=== PATIENT | female | born 1950 | race Two or more races ===

== ENCOUNTER 2025-02-04 00:38 | Emergency (ER) | payer OTHER ==
[~2025-02-04] VITALS: Ht 149.9 cm; Wt 62.7 kg
[2025-02-04 00:45] VITALS: BP 157/70; RESP 18; TEMP 98.5; O2SAT 93
--- NOTE | 2025-02-04 01:25 | ECG ---
[facility] Test Date: 2025-02-04 Test Time: 01:01:28 Pat Name: GINNY HAM Department: ED Room: Gender: F Sample Wrapper: HAILEY : 1950 Requested By: FRANCO WELLINGTON Order Number: [id number] Reading MD: Efra Talavera Measurements Intervals [place] Rate: 98 P: 51 WV: 163 QRS: 23 QRSD: 83 T: 65 QT: 366 QTc: 468 Interpretive Statements Sinus rhythm Probable left atrial enlargement ST elevation, consider inferior injury Electronically Signed On 02-06-2025 13:00:39 PDT by Efra Talavera Please click the below link to view image of tracing.
--- NOTE | 2025-02-04 01:27 | DVH ---
EXAM: CT HEAD WITHOUT CONTRAST INDICATION: hallucinations TECHNIQUE: CT of the head without intravenous contrast. Radiation Dose : 1. Head: CT Dose: CTDI volume is 52 mGy. Dose-length product is 827 mGy*cm The dose indicators for CT are the volume Computed Tomography (CT) Dose Index (CTDIvol) and the Dose Length Product (DLP), and are measured in units of mGy and mGy-cm, respectively. These indicators are not patient dose, but values generated from the CT scanner acquisition factors. The report includes radiation exposure data for exposures received during this examination. COMPARISON: None FINDINGS: There is no evidence of acute intracranial hemorrhage, extra-axial collection, mass effect, midline s hift, herniation or hydrocephalus. The ventricles, sulci and cisterns are age appropriate. The florence-white differentiation is intact. Patchy periventricular and subcortical white matter hypoattenuation is nonspecific but may be related to small vessel ischemic disease. The visualized paranasal sinuses and mastoid air cells are clear. The surrounding soft tissues and osseous structures are unremarkable. IMPRESSION: 1. No acute intracranial abnormality. Radiation optimization: All CT scans at this facility use at least one of these dose optimization brigid hniques: automated exposure control mA and/or kV adjustment per patient size (includes targeted exam s where dose is matched to clinical indication) or iterative reconstruction.
--- NOTE | 2025-02-04 01:28 | DVH ---
CHEST RADIOGRAPH Indication: halucinations Technique: Single frontal view of the chest was obtained COMPARISON: None FINDINGS: Lines and Tubes: None Lungs: Questionable mild interstitial pulmonary edema Pleura: No effusion. No pneumothorax. Cardiomediastinal contours: Borderline cardiomegaly Bones: Unremarkable IMPRESSION: 1. Questionable mild interstitial pulmonary edema.
[2025-02-04 01:29] LABS: Urine Bacteria None Seen /hpf (None Seen)
[2025-02-04 01:31] LABS: Basophils # (auto) 0.1 10 ^3/uL (0-0.2); Basophils % (auto) 0.7 % (0.0-2.0); Eosinophils # (auto) 0.1 10 ^3/uL (0-0.8); Eosinophils % (auto) 0.4 % (0.0-7.0); Hematocrit 40.7 % (36.0-46.0); Hemoglobin 13.5 g/dL (12.2-16.2); Lymphocytes # (auto) 1.7 10 ^3/uL (0.4-5.4); Lymphocytes % (auto) 9.2 % (10.0-50.0); Mean Corpuscular Hemoglobin 29.3 pg (28.0-32.0); Mean Corpuscular Hgb Conc. 33.1 g/dL (32.0-36.0); Mean Corpuscular Volume 88.4 fL (80.0-100.0); Monocytes % (auto) 5.8 % (0.0-12.0); Neutrophils # (auto) 15.1 10 ^3/uL (1.6-8.6); Neutrophils % (auto) 83.9 % (37.0-80.0); Platelet Count (auto) 289 10^3/uL (140-450); Red Blood Cells 4.61 10^6/uL (4.0-5.20); Red Cell Distribution Width 14.4 % (11.8-14.3)
[2025-02-04 01:40] LABS: Urine Blood Negative /uL (Negative); Urine Clarity Clear (Clear); Urine Color Yellow (Yellow); Urine Mucus FEW (None Seen); Urine Protein, UAD Negative (Negative); Urine Specific Gravity 1.023 (1.001-1.035); Urine Squamous Epithelial Cell FEW /hpf (<5); Urine Urobilinogen Normal (Negative); Urine WBC 11 /HPF (0-5); Urine pH 5.5 (5.0-9.0)
[2025-02-04 01:43] VITALS: PULSE 98
--- NOTE | 2025-02-04 01:43 | ED.PDOC ---
History of Present Illness HPI Comments 74-year-old female with a history of diabetes, osteoporosis, arthritis here today with daughter with complaints of nausea/vomiting and headache and hallucinations that started today at approximately 5:30 p.m. (approximately 8 hours prior to arrival). Patient took one Tylenol over the counter pill which she states completely alleviated her headache. Per daughter, patient stated earlier that a family member who is brought her a bucket for her to throw up in and the patient agrees that this is what she saw. She also states that this family member told her that he was going to take her with him. Patient denies any suicidal or homicidal thoughts. No hallucinations. It has not never happened before. Vomiting is nonbloody nonbilious. No other medication use aside from Tylenol. No smoking, alcohol, or drug use. No trauma. Only prior surgery is an eye surgery. No other pain or symptoms. No numbness or weakness. Patient is still able to ambulate without assistance. No vision changes. No difficulty speaking. No facial droop. Patient is at her neurologic baseline per daughter at bedside. Chief Complaint: Hallucinations Time Seen by MD: 00:56 Allergies: Coded Allergies: Metformin (Verified Allergy, Unknown, 02/04/25) Mode of Arrival: Wheelchair Past Medical History PAST MEDICAL HISTORY: Arthritis, DM Surgical History: Denies all surgeries EDGE INKER UPPERS History: No Pertinent EDGE INKER UPPERS History All Other Systems: Reviewed and Negative (Negative except as noted in HPI) Physical Exam General Appearance: No Apparent Distress, Normal HEENT: Normal ENT Inspection, Pharynx Normal, TMs Normal Neck: Full Range of Motion, Non-Tender, Normal, Normal Inspection Respiratory: Chest Non-Tender, Lungs Clear, No Accessory Muscle Use, No Respiratory Distress, Normal Breath Sounds Cardiovascular: No Edema, No Murmur, No Gallop, Normal Peripheral Pulses, Regular Rate/Rhythm Breast Exam: Deferred Gastrointestinal: No Organomegaly, Non Tender, No Pulsatile Mass, Normal Bowel Sounds, Soft Genitalia: Deferred Pelvic: Deferred Rectal: Deferred Extremities: No calf tenderness, Normal capillary refill, Normal inspection, Normal range of motion, Non-tender, No pedal edema Musculoskeletal : Apperance: Normal Neurologic: Alert, feed project engineer II-XII nml as Tested, No Motor Deficits, Normal Affect, Normal Mood, No Sensory Deficits, Other (Cranial nerves 2-12 intact, sensation intact to light touch throughout, 5/5 strength in bilateral upper and lower extremities, able to ambulate with a steady gait without assistance, negative Romberg sign, normal [id number], no pronator drift, no truncal ataxia) Cerebellar Function: Normal Reflexes: Normal Skin: Dry, Normal Color, Warm Lymphatic: No Adenopathy Was a procedure done? Was a procedure done?: No EKG EKG : Pulse Rate (adult): 98 [place]: Normal Cardiac Rhythm: NSR Comments No STEMI Differential Dx Considerations may include: Alzheimer's/dementia, CVA, frontotemporal dementia, ACS, electrolyte derangement, renal dysfunction, infection X-Ray, Labs, Meds, VS Vital Signs Date Time Temp Pulse Resp B/P (MAP) Pulse Ox O2 Delivery O2 Flow Rate FiO2 02/04/25 01:43 98 02/04/25 01:01 98 02/04/25 00:45 98.5 102 18 157/70 (99) 93 98.5 Lab Test 02/04/25 01:10 02/04/25 00:50 02/04/25 00:45 Range/Units White Blood Count 18.0 H 4.4-10.8 10^3/uL Red Blood Count 4.61 4.0-5.20 10^6/uL Hemoglobin 13.5 12.2-16.2 g/dL Hematocrit 40.7 36.0-46.0 % Mean Corpuscular Volume 88.4 80.0-100.0 fL Mean Corpuscular Hemoglobin 29.3 28.0-32.0 pg Mean Corpuscular Hemoglobin Concent 33.1 32.0-36.0 g/dL Red Cell Distribution Width 14.4 H 11.8-14.3 % Platelet Count 289 140-450 10^3/uL Mean Platelet Volume 8.4 6.9-10.8 fL Neutrophils (%) (Auto) 83.9 H 37.0-80.0 % Lymphocytes (%) (Auto) 9.2 L 10.0-50.0 % Monocytes (%) (Auto) 5.8 0.0-12.0 % Eosinophils (%) (Auto) 0.4 0.0-7.0 % Basophils (%) (Auto) 0.7 0.0-2.0 % Neutrophils # (Auto) 15.1 H 1.6-8.6 10 ^3/uL Lymphocytes # (Auto) 1.7 0.4-5.4 10 ^3/uL Monocytes # (Auto) 1.0 0-1.3 10 ^3/uL Eosinophils # (Auto) 0.1 0-0.8 10 ^3/uL Basophils # (Auto) 0.1 0-0.2 10 ^3/uL Nucleated Red Blood Cells 0.0 % Sodium Level 134 L 136-145 mmol/L Potassium Level 4.0 3.5-5.1 mmol/L Chloride Level 102 98-107 mmol/L Carbon Dioxide Level 19 L 20-31 mmol/L Anion Gap 13 5-15 Blood Urea Nitrogen 18 9-23 mg/dL Creatinine 0.94 0.550-1.02 mg/dL Glomerular Filtration Rate Calc 64 >90 mL/min BUN/Creatinine Ratio 19.1 10.0-20.0 Serum Glucose 372 H 74-106 mg/dL Calcium Level 9.6 8.7-10.4 mg/dL Troponin I High Sensitivity 5 </=34 ng/L B-Type Natriuretic Peptide 63.64 0-100 pg/mL Lipase 68 H 12-53 U/L Beta-Hydroxybutyric Acid 0.107 < 0.4 mmol/L Thyroid Stimulating Hormone (TSH) 0.88 0.55-4.78 uIU/mL Salicylates Level < 3.0 -30 mg/dL Acetaminophen Level 17.0 10.0-20.0 UG/ML Plasma/Serum Blood Alcohol < 3.0 <10 mg/dL POC Glucose 378 H 70-106 mg/dl Urine Color Yellow Yellow Urine Clarity Clear Clear Urine pH 5.5 5.0-9.0 Urine Specific [place] 1.023 1.001-1.035 Urine Protein Negative Negative Urine Ketones Negative Negative Urine Blood Negative Negative /uL Urine Nitrite 2+ H Negative Urine Bilirubin Negative Negative Urine Urobilinogen Normal Negative mg/dL Urine Leukocyte Esterase 1+ Negative /uL Urine RBC 1 0 - 4 /hpf Urine Microscopic WBC 11 H 0-5 /HPF Urine Squamous Epithelial Cells Few <5 /hpf Urine Bacteria None seen None Seen /hpf Urine Mucus Few None Seen Urine Glucose 4+ H Normal mg/dL Urine Opiates Screen Neg NEGATIVE Urine Fentanyl Screen Neg NEGATIVE Urine Barbiturates Screen Neg NEGATIVE Urine Phencyclidine Screen Neg NEGATIVE Urine Amphetamines Screen Neg NEGATIVE Urine Benzodiazepines Screen Neg NEGATIVE Urine Cocaine Screen Neg NEGATIVE Urine Cannabinoids Screen Neg NEGATIVE X-Ray, Labs, Meds, VS Comment 74-year-old female with history of diabetes and additional medical problems has above here today with complaints of nausea, vomiting, headache which has now resolved, and hallucinations which started today at approximately 5:30 p.m.. No head trauma. No recent illness. Physical exam as above without any acute findings including a normal neurologic exam. Point of care blood sugar 378.. Labs notable for hyperglycemia and minimal acidosis without evidence of ketosis. Doubt DKA although patient is likely headed in that direction. Patient was started on fluids. Patient also noted to have a leukocytosis to 18 and a UA that is positive for UTI. Patient was started on IV ceftriaxone after cultures were obtained. CT head unremarkable. Chest x-ray with evidence of possible interstitial pulmonary edema per my interpretation, doubt pneumonia, no pneumothorax. Plan made to transfer the patient to [place] for further management of her delirium, UTI/pyelonephritis, and hyperglycemia. Update at 2:47 a.m.: I had an extensive discussion with the patient and her family members (>10 of them) regarding the patient's evaluation today, her findings, and my plan to transfer the patient to [facility] versus admit her to this hospital. They stated they would like to sign the patient out against medical advice and take her directly to [facility] as that is where all of her records are and they do not all want to wait in the waiting room "for hours and hours" for the transfer to be organized and they would rather take her there themselves. Patient also states she does not want to wait for the transfer process to take place. I had a long discussion with them about the risks of leaving given the patient is on the cusp of DKA and has pyelonephritis given the UA with a UTI and nausea/vomiting and leukocytosis but patient and family are both adamant they want to leave against medical advice and go straight to [facility]. They understand the risks of leaving including permanent disability and/or and the patient does have capacity to make her own decisions and is answering all of her questions appropriately and is able to state back to me the risks of permanent disability and/or and still would like to leave against medical advice. AMA form was signed and family and patient all left to head straight to [place]. Images Reviewed?: Images reviewed and evaluated by me Time of 1ST Reevaluation: 01:43 Reevaluation 1ST: Unchanged Time of 2ND Reevaluation: 02:33 Reevaluation 2ND: Improved Patient Education/Counseling: Diagnosis, Treatment, Prognosis, Need For Follow Up Family Education/Counseling: Diagnosis, Treatment, Prognosis, Need For Follow Up Departure 1 Departure Time of Disposition: 02:33 Impression: Primary Impression: Altered mental status Additional Impressions: History of diabetes mellitus Hyperglycemia Acidosis Pyelonephritis Disposition: LEFT AGAINST MEDICAL ADVICE Condition: Guarded Discharged With: Other (Patient left AMA with over 10 family members with plans to head directly to [place]) Critical Care Note Critical Care Time?: Yes (35 min-critical care time only) Stability Stability form required: No Heart Score Heart Score: Heart Score Response (Comments) Value History N/A 0 EKG N/A 0 Age N/A 0 Risk Factors N/A 0 Troponin N/A 0 Total 0 FRANCO WELLINGTON MD Feb 04, 2025 01:43
[2025-02-04 01:49] LABS: Amphetamine Screen, Urine Neg (NEGATIVE); Barbiturate Scree,Urine Neg (NEGATIVE); Benzodiazephine Screen, Urine Neg (NEGATIVE); Cannabinoid Screen, Urine Neg (NEGATIVE); Cocaine Screen, Urine Neg (NEGATIVE); Opiate Scree,Urine Neg (NEGATIVE); Phencyclidine Screen, Urine Neg (NEGATIVE)
[2025-02-04 01:51] LABS: Blood Alcohol < 3.0 mg/dL (<10)
[2025-02-04 01:53] LABS: Salicylate < 3.0 mg/dL (-30)
[2025-02-04 02:02] LABS: Lipase 68 U/L (12-53)
[2025-02-04 02:06] LABS: Chloride 102 mmol/L (98-107)
[2025-02-04 02:07] LABS: Anion Gap 13 (5-15); Calcium 9.6 mg/dL (8.7-10.4); Carbon Dioxide 19 mmol/L (20-31); Sodium 134 mmol/L (136-145)
[2025-02-04 02:12] LABS: BUN/Creatinine Ratio 19.1 (10.0-20.0); Blood Urea Nitrogen 18 mg/dL (9-23)
[2025-02-04 02:13] LABS: Glucose 372 mg/dL (74-106)
[2025-02-04] MEDS ORDERED: cefTRIAXone 1GM/50ML D5W 50 ML IV ONE (02:30)
== END 2025-02-04 02:48 | disposition left against medical advice (07) ==
LOC: ER 00:38
DX: E11.65 Type 2 diabetes mellitus with hyperglycemia (principal); E87.20 Acidosis, unspecified; N12 Tubulo-interstitial nephritis, not specified as acute or chronic; M19.90 Unspecified osteoarthritis, unspecified site; M81.0 Age-related osteoporosis without current pathological fracture
CPT/HCPCS: 36415; 70450; 71045; 80048; 80307; 80320; 80329; 81001; 82010; 82947; 82962; 83690; 83880; 84443; 84484; 85025; 87040; 93005